=== PATIENT | female | born 1990 | race Caucasian/White ===

== ENCOUNTER 2021-01-05 20:27 | Emergency (ER) | payer BC, MEDICAID ==
[~2021-01-05] VITALS: Ht 152.4 cm; Wt 45.4 kg
--- NOTE | 2021-01-05 21:05 | NUR ---
MD Fernandes at bedside to [facility].
[2021-01-05 21:32] LABS: HEMATOCRIT 36.9 % (31.2-41.9); MEAN CORPUSCULAR HEMOGLOBIN 30.4 uug (24.7-32.8); MEAN CORPUSCULAR VOLUME 88.8 fL (75.5-95.3); PLATELET COUNT (AUTO) 267 K/uL (179-408)
[2021-01-05 21:40] LABS: CREATININE 0.8 mg/dL (0.6-1.3); POTASSIUM 3.6 mmol/L (3.5-5.1)
--- NOTE | 2021-01-05 22:11 | NUR ---
engineering technical analyst in room with patient.
[2021-01-05] MEDS ORDERED: IOHEXOL 350 100 ML INFUS..BTL ONE (22:23)
[2021-01-05] MEDS ORDERED: SWABABLE VALVE TRANSFER SET EA MC ONE (22:23)
[2021-01-05] MEDS ORDERED: IV NORMAL SALINE 250 ML IV ONE (22:24)
--- NOTE | 2021-01-05 22:30 | NUR ---
Patient resting in room, using phone, with her partner at bedside. No acute distress noted.
--- NOTE | 2021-01-05 23:19 | NUR ---
wardrobe manager Izabella Krishnan from [facility] requested clinicals on the patient to be faxed over to .
--- NOTE | 2021-01-05 23:50 | NUR ---
Patient does not wish to proceed with medical care recommended by Dr. Fernandes. Patient given information related to possible complications, up to and including , which could occur as a result of leaving the hospital at this time. Patient verbalizes understanding of risks involved due to leaving against medical advice. Patient has signed AMA form.
[2021-01-06] VITALS: BP 118/69
--- NOTE | 2021-01-06 | NUR ---
Note kellyasia in ED - 01/06/21 at 0009 by HANH Patient does not wish to proceed with medical care recommended by Dr. Fernandes. Patient given information related to possible complications, up to and including , which could occur as a result of leaving the hospital at this time. Patient verbalizes understanding of risks involved due to leaving against medical advice. Patient has signed AMA form.
== END 2021-01-06 | disposition left against medical advice (07) ==
LOC: ER 20:30
DX: I63.9 Cerebral infarction, unspecified (principal); G83.21 Monoplegia of upper limb affecting right dominant side; F17.210 Nicotine dependence, cigarettes, uncomplicated; Z88.5 Allergy status to narcotic agent; R94.31 Abnormal electrocardiogram [ECG] [EKG]
CPT/HCPCS: 36415; 70496; 70498; 71045; 80048; 84484; 84702; 85025; 85730; 93005; 99285; Q9967; 70030-TC; A4663; J7050